=== PATIENT | male | born 1980 | race African-American/Black ===

== ENCOUNTER 2018-01-24 08:18 | Emergency (ER) | payer SELFPAY ==
[2018-01-24 08:26] VITALS: BP 109/66; PULSE 89; TEMP 98.4; BMI 27.3
--- NOTE | 2018-01-24 08:43 | PDOC ---
History of Present Illness - General Chief Complaint: Eye Problem Stated Complaint: EYE PROBLEM Time Seen by Provider: 01/24/18 08:33 History Source: Patient Exam Limitations: No Limitations - History of Present Illness Initial Comments: CHIEF COMPLAINT: 37 y/o afebrile male c/o eye swelling and discharge x 3 days. HISTORY OF PRESENT ILLNESS: The patient states his eyes have been swollen stuck. He denies fever and change of vision. Vital signs on arrival are within normal limits REVIEW OF SYSTEMS: GENERAL/CONSTITUTIONAL: No fever HEAD, EYES, EARS, NOSE AND THROAT: +b/l eye discharge and swelling. No change in vision. No ear pain or discharge. No sore throat. NEUROLOGIC: No headache, vertigo, loss of consciousness, or loss of sensation. PHYSICAL EXAM: GENERAL: The patient is awake, alert, and fully oriented, in no acute distress. HEAD: Normal with no signs of trauma. ENT: Copious purulent discharge seen on b/l lid margins with b/l injected conjunctiva. Edematous lids b/l. No ptosis or proptosis. No pain with EOMs. NEUROLOGICAL: Normal speech, normal gait. CN II-XII grossly intact.. SKIN: Warm, dry, normal turgor, no rashes or lesions noted. Past History - Past Medical History Allergies/Adverse Reactions: Allergies Allergy/AdvReac Type Severity Reaction Status Date / Time No Known Allergies Allergy Verified 01/24/18 08:23 Home Medications: Ambulatory Orders Erythromycin 0.5% Eye Ointment [Erythromycin 0.5% Eye Ointment -] 1 applic OU TID #1 tube 01/24/18 COPD: No - Immunization History Immunization Up to Date: Yes - Suicide/Smoking/Psychosocial Hx Smoking History: Current every day smoker Number of Cigarettes Smoked Daily: 5 Information on smoking cessation initiated: No Hx Alcohol Use: No Drug/Substance Use Hx: No *Physical Exam - Vital Signs Last Vital Signs Temp Pulse Resp BP Pulse Ox 98.4 F 89 18 109/66 98 01/24/18 08:23 01/24/18 08:23 01/24/18 08:23 01/24/18 08:23 01/24/18 08:23 Medical Decision Making - Medical Decision Making A/P: 37 y/o afebrile male with b/l bacterial conjunctivitis. Will send rx for erythro ointment. Suggested warm compresses and f/u with optho. The patient verbalizes understanding of all instructions, has no further questions and is awaiting discharge. *DC/Admit/Observation/Transfer Diagnosis at time of Disposition: Acute bacterial conjunctivitis of both eyes - Discharge Dispostion Disposition: HOME Condition at time of disposition: Good - Referrals Referrals: Kat Manuel MD [Staff Physician] - Call tomorrow - Patient Instructions Printed Discharge Instructions: How to Instill Eye Drops, DI for Conjunctivitis Additional Instructions: Discharge Instructions: -A prescription has been sent to your pharmacy for eye ointment -Apply warm compresses hourly to your eyes -Try not to rub your eyes. -Follow up with Dr. Gray in 1 week if no improvement - Post Discharge Activity
== END 2018-01-24 09:14 | disposition home or self-care (01) ==
LOC: JERFT 08:18
DX: H10.33 Unspecified acute conjunctivitis, bilateral (principal); A49.9 Bacterial infection, unspecified
CPT/HCPCS: 99281-25